=== PATIENT | female | born 1950 | race Hispanic/Latino ===

== ENCOUNTER 2017-08-01 17:05 | Emergency (ER) | payer MEDICARE, OTHER ==
[~2017-08-01] VITALS: Ht 152.4 cm; Wt 66.2 kg
[2017-08-01] MEDS ORDERED: PREDNISONE 20 MG TAB PO ONE (17:15)
[2017-08-01] MEDS ORDERED: ALBUTEROL/IPRATROPIUM 3 ML NEB NEB ONE (17:15)
--- NOTE | 2017-08-01 18:11 | Diagnostic Imaging Report ---
EXAMINATION: CHEST 2 VIEWS 08/01/2017 5:12 PM COMPARISON: None INDICATION: Flulike symptoms DISCUSSION: LINES: None. LUNGS: The lungs are well inflated and clear. No pneumonia or pulmonary edema. PLEURA: No pleural effusion or pneumothorax. HEART AND MEDIASTINUM: The cardiomediastinal silhouette is unremarkable. BONES AND SOFT TISSUES: No acute osseous lesion. The soft tissues are normal. IMPRESSION: No acute cardiopulmonary disease. Garret Barboza MD Signed by: Dr. Garret Barboza M.D. on 08/01/2017 6:07 PM
[2017-08-01] MEDS ORDERED: IBUPROFEN 600 MG TAB PO STA (18:53)
[2017-08-01 19:13] VITALS: BP 125/64
== END 2017-08-01 19:30 | disposition home or self-care (01) ==
LOC: ER 17:05
DX: R50.9 Fever, unspecified (principal); R05 Cough; J00 Acute nasopharyngitis [common cold]; J02.9 Acute pharyngitis, unspecified
CPT/HCPCS: 71046; 87400; 94640; 99283

== ENCOUNTER → 2017-12-01 | Outpatient (CLI) | payer MEDICARE, OTHER ==
--- NOTE | 2017-12-01 14:39 | Diagnostic Imaging Report ---
EXAM: DXA BONE DENSITY INDICATIONS: Not provided. COMPARISON: None. FINDINGS: Proximal left femur bone (neck) mineral density (BMD) (g/cm2):0.63 Femur T-score (standard deviation relative to young adult mean BMD): -2.1 Femur Z-score (standard deviation relative to age-matched control group):-0.5 Lumbar bone mineral density (BMD) (g/cm2):0.75 Lumbar T-score (standard deviation relative to young adult mean BMD): -2.7 Lumbar Z-score (standard deviation relative to age-matched control group):-0.7 Change since prior exam (%): Femur:Not applicable. Spine:Not applicable. Change since oldest prior exam (%): Femur:Not applicable. Spine:Not applicable. CONCLUSION: Bone mineral density is classified as osteoporosis as demonstrated by bone mineral density of the lumbar spine. Fracture risk is high. World Health Organization Classification: *The Z-score is provided for informational purposes. The T-score is preferable for clinical decisions. When comparing exams, a change of >4% is considered statistically significant. SUGGESTED RECOMMENDATIONS: Normal \T\ Osteopenia:Consideration should be given to use of calcium supplementation, daily multiple vitamins and adequate exercise, as preventive measures against osteoporosis, if clinically indicated. Osteoporosis \T\ Severe Osteoporosis:In addition to the above, consideration should be given to medical therapy against osteoporosis, if clinically indicated. Dictated by: Fabian Escobar M.D. on 12/01/2017 at 14:44 Electronically approved by: Fabian Escobar M.D. on 12/01/2017 at 14:44
--- NOTE | 2017-12-09 15:56 | Diagnostic Imaging Report ---
#[id number] - [id number] #BILATERAL DIGITAL SCREENING MAMMOGRAM WITH CAD: 12/01/2017 CLINICAL: Routine screening. No prior exams were available for comparison. Current study contains 4 films. The tissue of both breasts is heterogeneously dense. This may lower the sensitivity of mammography. Current study was also evaluated with a Computer Aided Detection (CAD) system. There are benign calcifications in both breasts. No significant masses, calcifications, or other findings are seen in either breast. IMPRESSION: BENIGN There is no mammographic evidence of malignancy. A 1 year screening mammogram is recommended. The patient will be notified by letter of the results. Fernie sanchez/valarie:12/09/2017 14:50:07 Chief Radiation Therapist: Ashley DONALD)(Katheryn), [facility] letter sent: Normal Exam Mammogram BI-RADS: 2 Benign
== END ==
LOC: MAMMO 13:28
PROVIDERS: ATTEND Family Medicine
DX: Z12.31 Encounter for screening mammogram for malignant neoplasm of breast (principal); M81.0 Age-related osteoporosis without current pathological fracture
CPT/HCPCS: 77067; 77080

== ENCOUNTER → 2017-12-29 | Day surgery (SDC) | payer MEDICARE, OTHER ==
[2017-12-27 10:27] LABS: BASOPHILS # (AUTO) 0.1 (0.0-0.1); BASOPHILS % 0.7 % (0.0-1.0); EOSINOPHILS # (AUTO) 0.4 (0.0-0.4); EOSINOPHILS % 5.5 % (0.0-6.0); HEMATOCRIT 36.6 % (34.2-44.1); HEMOGLOBIN 12.2 g/dL (12.0-16.0); LYMPHOCYTES # (AUTO) 1.3 (1.0-3.2); LYMPHOCYTES % 18.7 % (18.0-39.1); MEAN CORPUSCULAR HGB CONC 33.3 g/dL (31-35); MEAN CORPUSCULAR VOLUME 83.9 fL (81-99); MONOCYTES # (AUTO) 0.7 (0.2-0.8); NEUTROPHILS # (AUTO) 4.4 (2.1-6.9); NEUTROPHILS % 64.8 % (38.7-80.0); PLATELET COUNT 183 x10e3/uL (140-360); RED BLOOD COUNT 4.36 x10e6/uL (3.6-5.1)
[~2017-12-29] MED LIST: ALENDRONATE SOD70 MG PO; ALOE PO; AMLODIPINE BESYL5 MG PO; CACTUS PO; FENTANYL CITRATE/PF 100MCG/2 ML INJ ONE; LIDOCAINE HCL 2% LOCAL INJ 5 ML SDV VIAL INJ ONE; MIDAZOLAM HCL 2 MG/2 ML VIAL ONE; OMEPRAZOLE40 MG PO; PROPOFOL IV EMULSION 10 MG/ML 50 ML VIAL ONE; ROSUVASTATIN PO; VITAMIN D250000 UNIT PO
--- NOTE | 2017-12-29 13:55 | Operative Report ---
DATE OF PROCEDURE: December 29, 2017 REFERRING PHYSICIAN: Dr. Vickey Mullins PROCEDURES PERFORMED 1. Esophagogastroduodenoscopy with biopsies. 2. Colonoscopy with polypectomy. INDICATIONS FOR EGD: Heartburn and indigestion. INDICATIONS FOR COLONOSCOPY: Colorectal cancer screening. MEDICATION: Patient was done under MAC. Please see anesthesiologist's note. PROCEDURE: With the patient in the left lateral decubitus position, the flexible fiberoptic Olympus gastroscope was introduced into the esophagus under direct visualization without any difficulty. There was some patchy erythema noted in the distal esophagus. The scope was then advanced with ease into the stomach traversing an approximately 4 cm hiatal hernia. Mucosa overlying the antrum and the body revealed some patchy erythema and mild to moderate edema, and biopsies were obtained and sent to stain for H. pylori. Approximately, a 5 mm polypoid lesion in the distal body of anterior wall was biopsied. The pylorus was of normal contour and shape. It was intubated with ease. The scope was advanced all the way to the 2nd portion of the duodenum. The scope was then withdrawn slowly. Mucosa overlying the proximal 2nd portion and the duodenal bulb appeared to be within normal limits. The scope was then withdrawn back into the stomach and retroflexed. The previously described hiatal hernia was also noted in the retroflexed position. The scope was then straightened out. It was subsequently withdrawn. Patient tolerated the procedure well. IMPRESSION 1. Mild distal esophagitis. 2. Approximately 4 cm hiatal hernia. 3. Gastritis, biopsied. Biopsies sent to stain for Helicobacter pylori. 5. Approximately 5 mm polypoid lesion in distal body and posterior wall, biopsied. PLAN: Follow up histology. Increase omeprazole to 40 mg 1 p.o. a.c. b.i.d. Patient was then turned around. After adequate lubrication of the anal canal, a flexible fiberoptic Olympus colonoscope was inserted into the rectum with ease and advanced all the way to the cecum. It was then withdrawn slowly. Mucosa overlying the cecum, ascending colon and transverse colon appeared to be within normal limits. Diverticular disease was noted to involve the distal descending and the sigmoid colon. Two polyps were hot biopsied from the sigmoid colon. Three polyps were hot biopsied from the rectum. The scope was then retroflexed into the distal rectum and small internal hemorrhoids were noted, none of which was actively bleeding. The scope was then straightened out. It was subsequently withdrawn. Patient tolerated the procedure well. IMPRESSION 1. Diverticulosis. 2. Sigmoid colon polyps times 2, hot biopsied. 3. Rectal polyps times 3, hot biopsied. 4. Internal hemorrhoids, none actively bleeding. PLAN: Follow up histology. Initiate high-fiber and low-fat diet. Initiate high-fiber supplement. Patient will need a followup colonoscopy in 3 years. Job#: [id number] [place] cc:ANABELLE MULLINS DO
== END | disposition home or self-care (01) ==
LOC: OR 08:40
PROVIDERS: ATTEND Internal Medicine Gastroenterology
DX: Z12.11 Encounter for screening for malignant neoplasm of colon (principal); K57.30 Diverticulosis of large intestine without perforation or abscess without bleeding; K63.5 Polyp of colon; K62.1 Rectal polyp; K20.9 Esophagitis, unspecified; K29.70 Gastritis, unspecified, without bleeding; K44.9 Diaphragmatic hernia without obstruction or gangrene; K64.8 Other hemorrhoids; I10 Essential (primary) hypertension
CPT/HCPCS: 36415; 43239; 45384; 85025; 88305; 88312; 93005; J2001; J2250

== ENCOUNTER → 2019-03-29 | Outpatient (CLI) | payer MEDICARE, OTHER ==
[~2019-03-29] MED LIST changes: -FENTANYL CITRATE/PF 100MCG/2 ML INJ ONE; -LIDOCAINE HCL 2% LOCAL INJ 5 ML SDV VIAL INJ ONE; -MIDAZOLAM HCL 2 MG/2 ML VIAL ONE; -PROPOFOL IV EMULSION 10 MG/ML 50 ML VIAL ONE
--- NOTE | 2019-03-29 14:10 | Diagnostic Imaging Report ---
Exam: Bone mineral density study. History: 68-year-old postmenopausal female. Comparison: 12/01/2017 Discussion: Evaluation of the left hip and lumbar spine was performed utilizing DEXA Hologic bone densitometer. The study is technically adequate. The patient's fracture risk is compared to an age-matched control. Left femoral neck bone mineral density: 0.64 g/cm2, T-score is -2, Z-score is -0.3. Increased 2.6% compared to prior exam Lumbar spine total bone mineral density: 0.73 gm/cm2, T-score is -2.9, Z-score is -0.8. Decreased 2.9% compared to prior exam Impression: Bone mineralization by WHO Classification using T score is osteoporosis, fracture risk is high. <T score: NL = -1 or higher Osteopenia = -1 to -2.5 Osteoporosis = -2.5 or lower Z score: < - 1.5 concerning for path> Recommendations: Medical evaluation for secondary causes of low bone mineral density may be appropriate. Correlate clinically for the necessity and timing of the next bone mineral density study. National Osteoporosis Foundation recommendations: Initiate therapy to reduce fracture risk in postmenopausal women with -BMD t-scores below -2 by central DXA with no risk factors -BMD t-scores below -1.5 by central DXA with one or more risk factors (first deg relative with hip fracture, prior personal fracture, low body weight, smoking) -A prior vertebral or hip fracture AACE (Clinical Endocrinology) recommends treating the following: Postmenopausal women who have osteoporosis as diagnosed by fragility fractures or t scores -2.5 or below Postmenopausal women who have risk factors (including fh of hip fracture, low body weight, smoking, risk of falling, high bone turnover, advancing age) and borderline low BMD T scores of -1.5 or below Adequate intake of calcium (at least 1200mg/day) and vitamin D (400-800 IU/day). Regular weight bearing and muscle - strengthening exercises Avoid smoking and excessive alcohol Signed by: Damien Cadena on 03/29/2019 2:06 PM
== END ==
LOC: DX 12:55
PROVIDERS: ATTEND Family Medicine
DX: Z12.31 Encounter for screening mammogram for malignant neoplasm of breast (principal); M81.0 Age-related osteoporosis without current pathological fracture
CPT/HCPCS: 77067; 77080

== ENCOUNTER → 2020-12-13 | Outpatient (CLI) | payer MEDICARE, OTHER | LOC: MAMMO 10:24 | PROVIDERS: ATTEND Family Medicine | DX: Z12.31 Encounter for screening mammogram for malignant neoplasm of breast (principal); M81.0 Age-related osteoporosis without current pathological fracture | CPT/HCPCS: 77067; 77080 ==

== ENCOUNTER → 2022-01-14 | Outpatient (CLI) | payer MEDICARE, OTHER | LOC: MAMMO 14:05 | PROVIDERS: ATTEND Family Medicine | DX: Z12.31 Encounter for screening mammogram for malignant neoplasm of breast (principal) | CPT/HCPCS: 77067 ==

== ENCOUNTER → 2022-12-01 | Outpatient (CLI) | payer MEDICARE, OTHER | LOC: MAMMO 13:58 | PROVIDERS: ATTEND Family Medicine | DX: M85.88 Other specified disorders of bone density and structure, other site (principal) | CPT/HCPCS: 77080 ==

== ENCOUNTER 2024-10-09 11:21 | Observation (INO) | payer MEDICARE, OTHER ==
[~2024-10-09] VITALS: Ht 152.4 cm; Wt 74.4 kg
[~2024-10-09 11:21] MED LIST changes: +CELEBREX200 MG PO; +HYDROCODON-ACE1 EA11 PO; +PREDNISONE20 MG PO
[2024-10-09 11:35] VITALS: TEMP 98.1
[2024-10-09] MEDS: HYDROCODONE/APAP 5MG-325MG TAB PO ONE (14:08)
[2024-10-09] MEDS: TETANUS/DIPHTHERIA TOX ADULT 0.5 ML SYR IM ONE (14:09)
[2024-10-09 15:57] LABS: BASOPHILS % 0.4 % (0.0-1.0); EOSINOPHILS % 0.1 % (0.0-6.0); HEMATOCRIT 36.6 % (34.2-44.1); HEMOGLOBIN 11.6 g/dL (12.0-16.0); LYMPHOCYTES # (AUTO) 1.2 (1.0-3.2); LYMPHOCYTES % 17.5 % (18.0-39.1); MEAN CORPUSCULAR HGB CONC 31.7 g/dL (31-35); MEAN CORPUSCULAR VOLUME 81.9 fL (81-99); MONOCYTES # (AUTO) 0.5 (0.2-0.8); MONOCYTES % 7.3 % (4.4-11.3); NEUTROPHILS # (AUTO) 5.1 (2.1-6.9); NEUTROPHILS % 74.4 % (38.7-80.0); PLATELET COUNT 189 x10e3/uL (140-360); RED BLOOD COUNT 4.47 x10e6/uL (3.6-5.1); RED CELL DISTRIBUTION WIDTH 13.9 % (11.7-14.4); WHITE BLOOD COUNT 6.81 x10e3/uL (4.8-10.8)
[2024-10-09 16:00] VITALS: PULSE 69; RESP 15
[2024-10-09 16:15] LABS: PROTHROMBIN TIME 13.8 seconds (11.9-14.5)
[2024-10-09 16:16] LABS: PARTIAL THROMBOPLASTIN TIME 30.2 seconds (23.8-35.5)
[2024-10-09 16:22] LABS: ALBUMIN 3.7 g/dL (3.5-5.0); ALBUMIN/GLOBULIN RATIO 1.2 (0.8-2.0); ANION GAP 13.4 mmol/L (8-16); BILIRUBIN,TOTAL 0.4 mg/dL (0.2-1.2); CALCIUM 8.4 mg/dL (8.4-10.2); CREATININE, SERUM 0.75 mg/dL (0.57-1.11); MAGNESIUM 2.1 MG/DL (1.3-2.1); POTASSIUM 3.4 mmol/L (3.5-5.1); TOTAL PROTEIN 6.7 g/dL (6.5-8.1)
[2024-10-09 16:27] LABS: TROPONIN I 0.008 ng/mL (0-0.300)
[2024-10-09] MEDS ORDERED: ACETAMINOPHEN 325 MG TAB PO PRN (16:45)
[2024-10-09] MEDS ORDERED: ONDANSETRON HCL INJ 2MG/ML 2ML 2 MG/ML VIAL IV PRN (16:45)
[2024-10-09 17:46] VITALS: BP 158/72; PULSE 62; RESP 19; TEMP 97.7; O2SAT 100
[2024-10-09] MEDS ORDERED: NAPROXEN 250 MG TAB PO PRN (18:00)
[2024-10-09] MEDS ORDERED: ZINC PO (18:01)
[2024-10-09 18:37] VITALS: BP 158/72; PULSE 62; RESP 19; TEMP 97.7; O2SAT 100
[2024-10-09 20:00] VITALS: BP 143/63; PULSE 67; RESP 20; TEMP 97.9; O2SAT 98
[2024-10-09] MEDS: HYDROCODONE/APAP 5MG-325MG TAB PO PRN (21:52)
[2024-10-09] MEDS: LIDOCAINE HCL 4% 50 ML BTL TOP ONE (21:53)
[2024-10-10] VITALS: BP 134/84; PULSE 68; RESP 20; TEMP 98; O2SAT 98
[2024-10-10 04:00] VITALS: BP 117/72; PULSE 70; RESP 20; TEMP 98.1; O2SAT 94
[2024-10-10 05:19] LABS: BASOPHILS % 0.6 % (0.0-1.0); EOSINOPHILS % 0.2 % (0.0-6.0); HEMATOCRIT 34.9 % (34.2-44.1); LYMPHOCYTES # (AUTO) 1.3 (1.0-3.2); LYMPHOCYTES % 23.5 % (18.0-39.1); MEAN CORPUSCULAR HEMOGLOBIN 25.9 pg (28-32); MEAN CORPUSCULAR HGB CONC 31.5 g/dL (31-35); MEAN CORPUSCULAR VOLUME 82.1 fL (81-99); MONOCYTES # (AUTO) 0.5 (0.2-0.8); MONOCYTES % 9.6 % (4.4-11.3); NEUTROPHILS # (AUTO) 3.5 (2.1-6.9); NEUTROPHILS % 65.9 % (38.7-80.0); PLATELET COUNT 174 x10e3/uL (140-360); RED BLOOD COUNT 4.25 x10e6/uL (3.6-5.1); RED CELL DISTRIBUTION WIDTH 13.8 % (11.7-14.4); WHITE BLOOD COUNT 5.31 x10e3/uL (4.8-10.8)
[2024-10-10 05:53] LABS: ALBUMIN 3.4 g/dL (3.5-5.0); ALBUMIN/GLOBULIN RATIO 1.2 (0.8-2.0); ANION GAP 15.4 mmol/L (8-16); BILIRUBIN,TOTAL 0.4 mg/dL (0.2-1.2); CALCIUM 8.5 mg/dL (8.4-10.2); CHOL/HDL RATIO 3.4 (3.0-3.6); CREATININE, SERUM 0.72 mg/dL (0.57-1.11); TOTAL PROTEIN 6.2 g/dL (6.5-8.1)
[2024-10-10 05:55] LABS: POTASSIUM 3.4 mmol/L (3.5-5.1)
[2024-10-10 06:26] LABS: TROPONIN I 0.007 ng/mL (0-0.300)
[2024-10-10 08:32] VITALS: BP 141/73; PULSE 63; RESP 19; TEMP 98.5; O2SAT 98
[2024-10-10 09:00] VITALS: BP 141/73; PULSE 63; RESP 19; TEMP 98.5; O2SAT 98
[2024-10-10] MEDS: CRESTOR 10MG PO SCH (09:27)
[2024-10-10] MEDS: PANTOPRAZOLE SOD 40 MG TABEC PO SCH (09:28)
[2024-10-10] MEDS: AMLODIPINE BESYLATE 5 MG TAB PO SCH (09:28)
[2024-10-10] MEDS: POTASSIUM CHLORIDE 10MEQ EA PO ONE (09:29)
[2024-10-10 11:54] VITALS: BP 130/58; PULSE 78; RESP 20; TEMP 98.1; O2SAT 99
[2024-10-10] MEDS ORDERED: METHOCARBAMOL500 MG PO (12:03)
[2024-10-10] MEDS ORDERED: ONDANSETRON HCL 4 MG ORAL DISINTEGRATING TAB PO PRN (14:30)
== END 2024-10-10 15:25 | disposition home or self-care (01) ==
LOC: ER 11:42 → ERHOLD 16:43 → MED/SURG2 17:50
PROVIDERS: ADMIT Family Medicine Adult Medicine; ATTEND Family Medicine Adult Medicine
DX: S20.212A Contusion of left front wall of thorax, initial encounter (principal); S09.90XA Unspecified injury of head, initial encounter; I11.9 Hypertensive heart disease without heart failure; E78.5 Hyperlipidemia, unspecified; K21.9 Gastro-esophageal reflux disease without esophagitis; K44.9 Diaphragmatic hernia without obstruction or gangrene; W00.0XXA Fall on same level due to ice and snow, initial encounter; Y92.89 Other specified places as the place of occurrence of the external cause; I35.0 Nonrheumatic aortic (valve) stenosis; I08.3 Combined rheumatic disorders of mitral, aortic and tricuspid valves
CPT/HCPCS: 36415 ×2; 70450; 71250; 72125; 72170; 73110; 73130; 73562; 73590; 73660; 80053 ×2; 80061; 82550; 83735; 83880; 84484 ×2; 85025 ×2; 85610; 85730; 90471; 90714; 93005 ×2; 93306; 99252; 99284; G0378 ×2; J2470 ×3

== ENCOUNTER → 2025-02-01 | Outpatient (REF) | payer MEDICARE, OTHER ==
[~2025-02-01] MED LIST changes: +METHOCARBAMOL500 MG PO; +ZINC PO
== END ==
LOC: MAMMO 09:57
PROVIDERS: ATTEND Family Medicine
DX: Z12.31 Encounter for screening mammogram for malignant neoplasm of breast (principal); M85.88 Other specified disorders of bone density and structure, other site; E55.9 Vitamin D deficiency, unspecified
CPT/HCPCS: 77067; 77080